=== PATIENT | female | born 1955 | race Caucasian/White ===

== ENCOUNTER 2017-09-12 08:42 | Outpatient (CLI) | payer OTHER ==
[~2017-09-12 08:42] MED LIST: NABUMETONE750 MG PO
== END 2017-09-12 09:02 | disposition home or self-care (01) ==
LOC: SONOGRAMA 08:42 → MAMO-SONO 09:15
DX: M72.2 Plantar fascial fibromatosis (principal)

== ENCOUNTER 2024-07-07 08:23 | Outpatient (CLI) | payer OTHER | END 2024-07-07 08:28 | disposition home or self-care (01) | LOC: SONOGRAMA 08:23 | PROVIDERS: ATTEND Pathology Anatomic Pathology & Clinical Pathology | DX: D34 Benign neoplasm of thyroid gland (principal); E04.1 Nontoxic single thyroid nodule ==